=== PATIENT | female | born 1995 | race Caucasian/White ===

== ENCOUNTER 2020-05-19 14:00 | Observation (INO) ==
[2020-05-19 12:20] LABS: Red Cell Distribution Width 13.2 % (11.5-14.5)
[2020-05-19 12:21] LABS: Basophils % 0.5 %; Eosinophils # 0.3 K/mcL (0.0-0.6); Eosinophils % 3.8 %; Hematocrit 41.9 % (35.3-44.9); Immature Granulocytes % 0.5 % (0-4); Immature Platelets 24.3 % (1.1-6.1); Lymphocytes # 1.5 K/mcL (0.6-4.6); Lymphocytes % 20.1 %; Mean Corpuscular HGB Conc 33.4 g/dL (31.6-35.5); Mean Corpuscular Hemoglobin 29.7 pg (28.0-33.3); Mean Corpuscular Volume 88.8 fL (83.0-100.0); Mean Platelet Volume 14.1 fL (9.4-12.4); Monocytes # 0.4 K/mcL (0.0-1.3); Monocytes % 5.6 %; Neutrophils # 5.1 K/mcL (1.6-8.9); Platelet Count 116 K/mcL (140-400); Red Blood Count 4.72 M/mcL (3.82-4.97); Segmented Neutrophils % 69.5 %; White Blood Count 7.4 K/mcL (4.3-11.1)
[~2020-05-19 14:00] MED LIST: *HR* FentaNYL (PF) 100 MCG/2 ML VIAL ONE; *HR* HYDROmorphone PF 0.5 MG/0.5 ML SYRINGE IVP PRN; *HR* Labetalol 20 MG/4 ML SYRINGE IVP PRN; *HR* Meperidine 25 MG/ML SYRINGE IVP PRN; *HR* OxyCODONE/APAP 5/325 TABLET PO PRN; *HR* Promethazine 25 MG/ML VIAL IVP PRN; *HR* Propofol 200 MG/20 ML VIAL IVP ONE; Dexamethasone 4 MG/ML VIAL ONE; Doxycycline 100 MG in 0.9 % Sodium Chloride Mini Bag 100 ML IVPB ONE; Ferric Subsulfate 8 ML TOPICAL TP ONE; Insulin LISPRO 300 UNITS/3 ML VIAL SQ STA; Ketorolac 30 MG/ML VIAL IVP ONE; Lidocaine -MPF 2% 5 ML VIAL ONE; Naloxone 0.4 MG/ML INJ IVP PRN; Ondansetron 4 MG/2 ML VIAL IVP ONE; Ondansetron 4 MG/2 ML VIAL ONE; Ringers Solution, Lactated 1,000 ML IVC SCH; Ringers Solution, Lactated 1,000 ML ONE; Silver Nitrate Applicator 1 STICK..EA. TP ONE
[2020-05-19] MEDS ORDERED: Acetaminophen IV 1,000 MG/100 ML INFUS..BTL ONE (15:12)
[2020-05-19] MEDS ORDERED: *HR* Belladonna Alkaloids/Opium 30 MG RECTAL SUPPOSITORY RC STA (16:41)
[2020-05-19] MEDS ORDERED: Ketorolac 30 MG/ML VIAL ONE (16:52)
[2020-05-19 18:08] VITALS: BP 123/74
== END 2020-05-19 18:50 | disposition home or self-care (01) ==
LOC: 1NENULAB → EDSTATUS 14:00
PROVIDERS: ADMIT Obstetrics & Gynecology; ATTEND Obstetrics & Gynecology